=== PATIENT | female | born 1965 | race Caucasian/White ===

== ENCOUNTER 2016-04-23 04:34 | Emergency (ER) | payer OTHER ==
[~2016-04-23] VITALS: Ht 149.9 cm; Wt 57.3 kg
[~2016-04-23 04:34] MED LIST: ACCOLATE20 MG PO; ACIPHEX20 MG PO; ADVAIR 250/501 DISK IH; ADVIL PM1 TABLET PO; ALBUTEROL SULF8.5 GM IH; ALPRAZOLAM0.5 MG PO; ALPRAZOLAM1 MG PO; AMBIEN10 MG PO; AMBIEN5 MG PO; ASPIR-LOW81 MG PO; BUPROPION HCL150 M2 PO; CIPRO500 MG PO; CITALOPRAM HBR20 MG PO; COLACE100 MG PO; COMBIVENT200 INHALA IH; Combivent IH; DESYREL100 MG PO; DILAUDID2 MG PO; DOLOPHINE HCL10 MG PO; ENDOCET 10-6501 EACH PO; ENDOCET 7.5-321 EACH PO; FLAGYL500 MG PO; FLEXERIL5 MG PO; GABAPENTIN100 MG PO; GABAPENTIN600 MG PO; GEMFIBROZIL600 MG PO; HYDROXYZINE PAM50 MG PO; IMITREX100 MG PO; INDERAL LA80 MG PO; INDERAL80 MG PO; INHALER; Imitrex PO; K-DUR20 MEQ PO; KLOR-CON M2020 MEQ PO; LASIX20 MG PO; LASIX40 MG PO; LITHIUM CARBON300 M1 PO; LOPERAMIDE2 MG PO; LOPRESSOR25 MG PO; LOPRESSOR50 MG PO; MELOXICAM7.5 MG PO; METHADONE10 MG PO; METHADONE5 MG PO; METOPROLOL SUCC50 MG PO; METRONIDAZOLE500 MG PO; MIRALAX255 GM PO; MOBIC7.5 MG PO; Methadone PO; NABI650T PO; NEURONTIN100 MG PO; NEURONTIN300 MG PO; NICOTINE PATCH1 EAC1 TD; NICOTINE PATCH1 EAC2 TD; OMEPRAZOLE20 MG PO; OXYCODONE HCL10 MG PO; OXYCODONE HCL5 MG PO; OXYCODONE-APAP1 EAC6 PO; OXYCODONE-APAP1 EACH PO; PANTOPRAZOLE SO40 MG PO; PEPCID AC20 MG PO; PERCOCET 10/1 TABLET PO; PERCOCET 5/31 TABLET PO; PERCOCET 7.51 TABLET PO; PHENERGAN25 MG PR; POTASSIUM CHLO10 MEQ PO; PREDNISONE50 MG PO; PRILOSEC20 MG PO; PROMETHAZINE HC25 M1 PO; PROPRANOLOL HCL80 M1 PO; PROTONIX40 MG PO; PROVENTIL,2.5 MG/3 M IH; RANITIDINE HCL150 MG PO; RANITIDINE HCL75 MG PO; REGLAN10 MG PO; Reglan PO; SERTRALINE HCL100 MG PO; SINGULAIR10 MG PO; SPIRIVA1 INHALATI; SPIRIVA1 INHALATI IH; SULFACETAMIDE RIGHT EYE; SUMATRIPTAN SU100 MG PO; Singulair PO; THEO-24300 MG PO; THEO-DUR,THEOC300 MG PO; THEOPHYLLINE A300 M1 PO; TOPAMAX50 MG PO; TOPIRAGEN50 MG PO; TOPIRAMATE50 MG PO; TRAZODONE HCL50 MG PO; TYLENOL WITH C1 EACH PO; Theo-Dur,Theocron PO; Toprol XL PO; WELLBUTRIN SR150 MG; Wellbutrin SR PO; XANAX0.25 MG; XANAX1 MG PO; ZANTAC75 M1 PO; ZOFRAN ODT4 MG PO; ZOFRAN ODT8 MG PO; ZOFRAN4 MG PO; ZOLOFT100 MG PO; ZOLOFT50 MG PO; ZOLPIDEM TARTRA10 MG PO; Zoloft PO; [UNRECOGNIZED DRUG - REMARK]
[2016-04-23 05:46] LABS: CHLORIDE 105 mEq/L (99-109); POTASSIUM 3.2 mEq/L (3.7-5.4)
[2016-04-23 05:47] LABS: SODIUM 136 mEq/L (136-147)
[2016-04-23 05:49] LABS: GLUCOSE 112 mg/dL (70-99)
[2016-04-23 05:50] LABS: ANION GAP 12 MEQ/L (2-14)
[2016-04-23 05:51] LABS: TOTAL BILIRUBIN 0.8 mg/dL (0.0-1.0)
[2016-04-23 05:52] LABS: ALKALINE PHOSPHATASE 76 IU/L (3-129); GFR ESTIMATE (CALCULATED) > 59 mL/min/
[2016-04-23 05:54] LABS: HEMATOCRIT 38.3 % (36.0-46.0); MCH 30.6 PG (29.0-34.0); MCV 87.4 FL (83-99); MEAN PLAT.VOLUME 9.9 uM^3 (9.5-12.4); PLATELET COUNT 249 K/uL (156-360); RBC DIS.WIDTH-CV 13.2 % (11.8-14.6); RBC DIS.WIDTH-SD 41.2 % (39-53); RED BLOOD COUNT 4.38 M/uL (3.80-5.20); UREA NITROGEN (BUN) 20 mg/dL (9-23); WHITE BLOOD COUNT 8.7 K/uL (4.1-10.2)
[2016-04-23 05:56] LABS: LIPASE 20 U/L (1.0-51.0)
[2016-04-23 06:01] LABS: QUANTITATIVE HCG < 4.0 MIU/ML
[2016-04-23] MEDS ORDERED: FLAGYL500 MG PO (06:47)
[2016-04-23] MEDS ORDERED: CIPRO500 MG PO (06:47)
[2016-04-23 07:03] LABS: ADD MIUA? YES; BILIRUBIN NEGATIVE; BLOOD NEGATIVE; COLOR YELLOW ((YELLOW)); GLUCOSE (STRIP) NEGATIVE; KETONES NEGATIVE; LEUKOCYTES TRACE; NITRITE NEGATIVE; PROTEIN (STRIP) NEGATIVE; SPECIFIC GRAVITY 1.039 (1.000-1.030)
[2016-04-23 07:32] LABS: BACTERIA NONE SEEN; CASTS NONE SEEN /LPF; EPITHELIAL CELLS RARE; MUCUS NONE SEEN; PATHOLOGICAL CAST NONE SEEN; RED BLOOD CELLS 0-5 /HPF (0-5); SMALL ROUND CELL NONE SEEN; UCUL ADDED? NO; WHITE BLOOD CELLS 0-5 /HPF (0-5); YEAST-LIKE CELL NONE SEEN
[2016-04-23 07:55] LABS: CRYSTALS NONE SEEN
[2016-04-23 08:02] VITALS: BP 140/89
[2016-04-23] MEDS ORDERED: ZOFRAN ODT4 MG PO (08:55)
[2016-04-23] MEDS ORDERED: PERCOCET 5/31 TABLET PO (08:55)
[2016-04-24] MEDS ORDERED: ZOFRAN ODT4 MG PO (13:57)
[2016-04-24] MEDS ORDERED: BENTYL20 MG PO (13:57)
== END 2016-04-23 09:32 | disposition home or self-care (01) ==
LOC: EME 04:34
PROVIDERS: Emergency Medicine
DX: K52.9 Noninfective gastroenteritis and colitis, unspecified (principal); R10.9 Unspecified abdominal pain; E87.6 Hypokalemia; F17.200 Nicotine dependence, unspecified, uncomplicated; Z88.6 Allergy status to analgesic agent; Z88.5 Allergy status to narcotic agent; J45.909 Unspecified asthma, uncomplicated; J44.9 Chronic obstructive pulmonary disease, unspecified; K21.9 Gastro-esophageal reflux disease without esophagitis
CPT/HCPCS: 74177; 80053; 81003; 83605; 83690; 84702; 85027; 87493; 93005; 99281; 99285; J2270; J2405; J7030; S0028

== ENCOUNTER 2016-04-24 09:48 | Emergency (ER) | payer OTHER ==
[~2016-04-24] VITALS: Ht 149.9 cm; Wt 51.0 kg
[2016-04-24 10:43] LABS: HEMATOCRIT 38.9 % (36.0-46.0); MCHC 34.2 G/DL (30.0-36.0); MCV 90.7 FL (83-99); MEAN PLAT.VOLUME 10.3 uM^3 (9.5-12.4); PLATELET COUNT 250 K/uL (156-360); RBC DIS.WIDTH-CV 13.3 % (11.8-14.6); RBC DIS.WIDTH-SD 44.2 % (39-53); RED BLOOD COUNT 4.29 M/uL (3.80-5.20); WHITE BLOOD COUNT 6.6 K/uL (4.1-10.2)
[2016-04-24 10:46] LABS: CHLORIDE 107 mEq/L (99-109); POTASSIUM 3.4 mEq/L (3.7-5.4); SODIUM 137 mEq/L (136-147)
[2016-04-24 10:48] LABS: GLUCOSE 114 mg/dL (70-99)
[2016-04-24 10:50] LABS: ANION GAP 10 MEQ/L (2-14); TOTAL BILIRUBIN 0.7 mg/dL (0.0-1.0)
[2016-04-24 10:52] LABS: ALKALINE PHOSPHATASE 74 IU/L (3-129); GFR ESTIMATE (CALCULATED) > 59 mL/min/
[2016-04-24 10:53] LABS: UREA NITROGEN (BUN) 19 mg/dL (9-23)
[2016-04-24 11:03] LABS: QUANTITATIVE HCG < 4.0 MIU/ML
[2016-04-24 11:49] LABS: LIPASE 18 U/L (1.0-51.0)
[2016-04-24] MEDS ORDERED: BENTYL20 MG PO (13:57)
[2016-04-24] MEDS ORDERED: ZOFRAN ODT4 MG PO (13:57)
[2016-04-24 15:53] VITALS: BP 177/88
== END 2016-04-24 15:56 | disposition home or self-care (01) ==
LOC: EME 09:48
DX: R10.84 Generalized abdominal pain (principal); R11.10 Vomiting, unspecified; R19.7 Diarrhea, unspecified; J40 Bronchitis, not specified as acute or chronic; W19.XXXA Unspecified fall, initial encounter; Z88.6 Allergy status to analgesic agent; F17.200 Nicotine dependence, unspecified, uncomplicated
CPT/HCPCS: 70450; 74022; 80053; 81003; 83690; 84702; 85027; 93005; 94640; 99281; 99285; J2270; J2405; J2765; J7030

== ENCOUNTER 2016-06-26 15:13 | Emergency (ER) | payer OTHER ==
[~2016-06-26] VITALS: Ht 149.9 cm; Wt 56.7 kg
[~2016-06-26 15:13] MED LIST changes: +BENTYL20 MG PO
[2016-06-26 15:46] LABS: HEMATOCRIT 39.7 % (36.0-46.0); MCH 29.9 PG (29.0-34.0); MCHC 32.2 G/DL (30.0-36.0); MCV 92.8 FL (83-99); MEAN PLAT.VOLUME 9.6 uM^3 (9.5-12.4); PLATELET COUNT 286 K/uL (156-360); RBC DIS.WIDTH-CV 13.7 % (11.8-14.6); RED BLOOD COUNT 4.28 M/uL (3.80-5.20); WHITE BLOOD COUNT 7.8 K/uL (4.1-10.2)
[2016-06-26 16:03] LABS: CHLORIDE 108 mEq/L (99-109); POTASSIUM 4.7 mEq/L (3.7-5.4); SODIUM 142 mEq/L (136-147)
[2016-06-26 16:04] LABS: GLUCOSE 106 mg/dL (70-99)
[2016-06-26 16:06] LABS: ANION GAP 12 MEQ/L (2-14)
[2016-06-26 16:07] LABS: TROP-I INTERPRETATION NEGATIVE; TROPONIN-I < 0.01 ng/mL (0.0-0.30)
[2016-06-26 16:08] LABS: GFR ESTIMATE (CALCULATED) > 59 mL/min/
[2016-06-26 16:09] LABS: UREA NITROGEN (BUN) 18 mg/dL (9-23)
[2016-06-26] MEDS ORDERED: AZITHROMYCIN250 MG1 PO (16:27)
[2016-06-26] MEDS ORDERED: PREDNISONE50 MG PO (16:31)
[2016-06-26] MEDS ORDERED: TOPIRAMATE50 MG PO (17:23)
[2016-06-26] MEDS ORDERED: GABAPENTIN600 MG PO (17:23)
[2016-06-26] MEDS ORDERED: TRAZODONE HCL50 MG PO (17:24)
[2016-06-26 17:50] VITALS: BP 117/79
== END 2016-06-26 18:00 | disposition home or self-care (01) ==
LOC: EME 15:13
PROVIDERS: Emergency Medicine
DX: J44.0 Chronic obstructive pulmonary disease with (acute) lower respiratory infection (principal); K21.9 Gastro-esophageal reflux disease without esophagitis; F17.200 Nicotine dependence, unspecified, uncomplicated
CPT/HCPCS: 71020; 80048; 84484; 85027; 93005; 94640; 99281; 99285; J1885; J7512

== ENCOUNTER 2016-10-10 10:30 | Emergency (ER) | payer OTHER ==
[~2016-10-10] VITALS: Ht 149.9 cm; Wt 60.5 kg
[~2016-10-10 10:30] MED LIST changes: +AZITHROMYCIN250 MG1 PO
[2016-10-10 11:41] LABS: HEMATOCRIT 38.3 % (36.0-46.0); MCH 30.7 PG (29.0-34.0); MCHC 33.4 G/DL (30.0-36.0); MCV 91.8 FL (83-99); MEAN PLAT.VOLUME 9.5 uM^3 (9.5-12.4); PLATELET COUNT 245 K/uL (156-360); RBC DIS.WIDTH-CV 12.6 % (11.8-14.6); RBC DIS.WIDTH-SD 42.3 % (39-53); RED BLOOD COUNT 4.17 M/uL (3.80-5.20); WHITE BLOOD COUNT 8.7 K/uL (4.1-10.2)
[2016-10-10 12:08] LABS: ANION GAP 10 MEQ/L (2-14); CHLORIDE 106 MEQ/L (99-109); POTASSIUM 4.2 MEQ/L (3.7-5.4); SAMPLE HEMOLYSIS CHECK 0; SAMPLE ICTERIC CHECK 0; SAMPLE LIPEMIA CHECK 0; SODIUM 139 MEQ/L (136-147); TOTAL BILIRUBIN 0.4 MG/DL (0.0-1.0)
[2016-10-10 12:14] LABS: ALKALINE PHOSPHATASE 91 IU/L (3-129); GFR ESTIMATE (CALCULATED) > 59 mL/min/; GLUCOSE 90 mg/dL (70-99); LIPASE 13 U/L (1.0-51.0); UREA NITROGEN (BUN) 16 mg/dL (9-23)
[2016-10-10 12:19] LABS: QUANTITATIVE HCG < 4.0 MIU/ML
[2016-10-10] MEDS ORDERED: LIDODERM 5% P1 PATCH TD ×2 (15:46→17:21)
[2016-10-10] MEDS ORDERED: PREDNISONE20 MG PO ×2 (15:46→17:21)
[2016-10-10 16:15] LABS: ADD MIUA? YES; BILIRUBIN NEGATIVE; BLOOD NEGATIVE; COLOR YELLOW ((YELLOW)); GLUCOSE (STRIP) NEGATIVE; KETONES NEGATIVE; LEUKOCYTES TRACE; NITRITE NEGATIVE; PROTEIN (STRIP) NEGATIVE; SPECIFIC GRAVITY 1.008 (1.000-1.030); UROBILINOGEN 0.2 MG/DL (0.2-1.0)
[2016-10-10 16:24] LABS: BACTERIA RARE /HPF; EPITHELIAL CELLS RARE /HPF; MUCUS TRACE /LPF; RED BLOOD CELLS 0-5 /HPF (0-5); UCUL ADDED? NO; WHITE BLOOD CELLS 0-5 /HPF (0-5)
[2016-10-10] MEDS ORDERED: BACLOFEN10 MG PO (17:11)
[2016-10-10 17:30] VITALS: BP 131/82
== END 2016-10-10 17:29 | disposition home or self-care (01) ==
LOC: EME 10:30
DX: M54.42 Lumbago with sciatica, left side (principal); R10.32 Left lower quadrant pain; R11.0 Nausea; X50.0XXA Overexertion from strenuous movement or load, initial encounter; Y93.E6 Activity, residential relocation; Z87.19 Personal history of other diseases of the digestive system; F17.200 Nicotine dependence, unspecified, uncomplicated
CPT/HCPCS: 74177; 80053; 81003; 83690; 84702; 85027; 99281; 99285; J2930; J3010; J7030